=== PATIENT | female | born 1980 | race Caucasian/White ===

== ENCOUNTER 2017-09-12 21:10 | Emergency (ER) | payer MEDICARE, MEDICAID ==
[~2017-09-12] VITALS: Ht 165.1 cm; Wt 92.1 kg
[~2017-09-12 21:10] MED LIST: ACETAMINOPHEN-1 EAC1 PO; AMITRIPTYLINE H25 M3 PO; BACLOFEN; BACTRIM DS TAB1 EACH PO; BUTALB-APAP-CA1 EACH PO; CARISOPRODOL 3350 MG; CIPRO250 M1 PO; CLEOCIN HCL300 MG PO; CLIMARA; COZAAR 50 MG TA50 M2; CUBICIN500 MG IVPB; CYMBALTA30 MG; ESTRACE1 MG PO; FLAGYL500 MG PO; HYDROCHLOROTH12.5 M1; HYDROCODONE-AP1 EAC6 PO; IBUPROFEN 800800 M1 PO; LEVAQUIN 500 M500 M2 PO; LISINOPRIL10 MG PO; MELOXICAM7.5 MG; MOBIC7.5 M1 PO; NAPROSYN500 MG PO; NEURONTIN300 MG PO; NORCO 10-325 T1 EACH PO; NORCO 5-325 TA1 EACH PO; PHENERGAN 25 MG25 M1 PO; PREDNISONE 20 M20 M1 PO; PREDNISONE 20 M20 MG PO; PROTONIX40 M1 PO; PROZAC20 MG PO; TORADOL 10 MG T10 MG PO; TRAMADOL 50 MG50 MG PO; TRAZODONE 150150 M1 PO; VALACYCLOVIR500 MG PO; VALTREX 500 MG500 M1 PER TUBE; VENTOLIN HFA 1818 GM INH; VICODIN; ZOFRAN4 MG PO; ZPAK PO
[2017-09-12 21:45] LABS: ABSOLUTE BASOPHILS 0.1 thou/uL (0.0-0.2); ABSOLUTE EOSINOPHILS 0.4 thou/uL (0.0-0.7); ABSOLUTE MONOCYTES 0.6 thou/uL (0.0-1.2); ABSOLUTE NEUTROPHILS 4.9 thou/uL (1.6-8.1); BASOPHILS 0.8 %; HEMATOCRIT 39.8 % (37.0-47.0); HEMOGLOBIN 13.8 gm/dL (12.0-15.0); LYMPHOCYTES 34.1 %; MCH 29.5 pg (26.0-34.0); MCHC 34.6 g/dL (28.0-37.0); MCV 85.3 fL (80.0-100.0); MONOCYTES 6.3 %; MPV 7.9 fl. (7.2-11.1); NUCLEATED RBCS 0 /100WBC; PLATELET COUNT* 405 thou/uL (150-400); POLYS 54.8 %; RBC 4.66 mil/uL (4.20-5.00); RDW-CV 14.2 % (10.5-14.5); WBC 8.9 thou/uL (4.0-11.0)
[2017-09-12 21:53] LABS: ANION GAP 8 mmol/L (7-16); BUN 8 mg/dL (7-18); CALCIUM 8.4 mg/dL (8.5-10.1); CHLORIDE 98 mmol/L (98-107); CO2 30 mmol/L (21-32); CREATININE 0.9 mg/dL (0.6-1.3); GLUCOSE 97 mg/dL (70-99); POTASSIUM 3.3 mmol/L (3.5-5.1); SODIUM 136 mmol/L (136-145)
[2017-09-12 22:00] LABS: ALBUMIN 3.4 g/dL (3.4-5.0); ALKALINE PHOSPHATASE 130 U/L (46-116); LIPASE 144 U/L (73-393); SGOT 25 U/L (15-37); SGPT 34 U/L (30-65); TOTAL BILIRUBIN 0.2 mg/dL (<0.1-1.0); TOTAL PROTEIN 7.4 g/dL (6.4-8.2); TROPONIN-I LEVEL <0.06 ng/mL (<0.06)
[2017-09-12 22:45] LABS: URINE BILIRUBIN NEGATIVE (Negative); URINE BLOOD NEGATIVE (Negative); URINE CLARITY CLEAR; URINE COLOR YELLOW; URINE GLUCOSE-RANDOM NEGATIVE (Negative); URINE KETONES NEGATIVE (Negative); URINE LEUKOCYTES NEGATIVE (Negative); URINE NITRITE NEGATIVE (Negative); URINE PROTEIN NEGATIVE (Negative); URINE UROBILINOGEN 0.2 E.U./dl (0.2-1.0)
[2017-09-12] MEDS ORDERED: CARAFATE 1 GM TA1 G1 PO (23:19)
[2017-09-12] MEDS ORDERED: OMEPRAZOLE40 MG PO (23:19)
[2017-09-12 23:37] VITALS: BP 118/51
--- NOTE | 2017-09-13 14:39 | EKG ---
[place] [address] ELECTROCARDIOGRAM REPORT Name: LUCINA HEWITT [id number] Admission: 09/12/17 Attend Phys: Discharge: 09/12/17 Date of : [birth year] Report #: [id number] THIS REPORT FOR: //name// [facility] ED Test Date: 2017-09-12 Test Time: 21:45:04 Pat Name: LUCINA HEWITT Department: Room: Gender: F Accreditation Specialist: CANDICE : 1980 Requested By: Yodit Butt Order Number: [id number] MD: Zac Payne Measurements Intervals [place] Rate: 78 P: 51 [place]: 179 QRS: 61 QRSD: 107 T: 31 QT: 407 QTc: 464 Interpretive Statements Sinus rhythm Abnormal inferior Q waves Minimal ST depression, inferior leads Baseline wander in lead(s) II,III,aVF,V1,V2,V4,V5,V6 Compared to ECG 01/25/2017 20:55:06 no change Electronically Signed On 09-13-2017 14:39:43 FABRIC WORKER SUPERVISOR by Zac Payne [email or web address] <ELECTRONICALLY SIGNED> By: Zac Payne MD, FACC 09/13/17 1439 [id number] [id number] Zac Payne MD, [facility] /EPI
== END 2017-09-12 23:38 | disposition home or self-care (01) ==
LOC: M.ERS 21:10
PROVIDERS: Physician Assistant
DX: R10.12 Left upper quadrant pain (principal); E87.6 Hypokalemia; G43.909 Migraine, unspecified, not intractable, without status migrainosus; F17.210 Nicotine dependence, cigarettes, uncomplicated; F41.9 Anxiety disorder, unspecified; Z98.890 Other specified postprocedural states; Z90.710 Acquired absence of both cervix and uterus; Z88.1 Allergy status to other antibiotic agents; Z88.0 Allergy status to penicillin; Z88.8 Allergy status to other drugs, medicaments and biological substances

== ENCOUNTER 2017-12-02 00:30 | Emergency (ER) | payer MEDICARE, MEDICAID ==
[~2017-12-02] VITALS: Ht 165.1 cm; Wt 93.0 kg
[~2017-12-02 00:30] MED LIST changes: +CARAFATE 1 GM TA1 G1 PO; +OMEPRAZOLE40 MG PO
[2017-12-02] MEDS ORDERED: AMITRIPTYLINE H50 M2 PO (00:41)
[2017-12-02] MEDS ORDERED: RITALIN20 MG PO (00:42)
[2017-12-02 01:13] LABS: URINE BILIRUBIN NEGATIVE (Negative); URINE BLOOD NEGATIVE (Negative); URINE CLARITY CLEAR; URINE COLOR YELLOW; URINE GLUCOSE-RANDOM NEGATIVE (Negative); URINE KETONES NEGATIVE (Negative); URINE LEUKOCYTES-REFLEX NEGATIVE (Negative); URINE NITRITE-REFLEX NEGATIVE (Negative); URINE PROTEIN NEGATIVE (Negative); URINE SPECIFIC GRAVITY <= 1.005 (1.005-1.030); URINE UROBILINOGEN 0.2 E.U./dl (0.2-1.0)
[2017-12-02 01:20] LABS: AMP/METHAMP Negative (Negative); BARBITURATES Negative (Negative); BENZODIAZEPINES Negative (Negative); COCAINE Negative (Negative); METHADONE Negative (Negative); OPIATES POSITIVE (Negative); PCP Negative (Negative); THC POSITIVE (Negative)
[2017-12-02 01:26] LABS: ABSOLUTE BASOPHILS 0.1 thou/uL (0.0-0.2); ABSOLUTE EOSINOPHILS 0.5 thou/uL (0.0-0.7); ABSOLUTE LYMPHOCYTES 2.4 thou/uL (0.8-5.3); ABSOLUTE MONOCYTES 0.4 thou/uL (0.0-1.2); ABSOLUTE NEUTROPHILS 5.4 thou/uL (1.6-8.1); BASOPHILS 0.6 %; EOSINOPHILS 5.2 %; LYMPHOCYTES 27.6 %; MCH 28.8 pg (26.0-34.0); MCHC 33.3 g/dL (28.0-37.0); MCV 86.3 fL (80.0-100.0); MONOCYTES 4.4 %; MPV 8.1 fl. (7.2-11.1); NUCLEATED RBCS 0 /100WBC; PLATELET COUNT* 402 thou/uL (150-400); POLYS 62.2 %; RBC 5.22 mil/uL (4.20-5.00); RDW-CV 13.9 % (10.5-14.5); WBC 8.7 thou/uL (4.0-11.0)
[2017-12-02 01:30] LABS: ANION GAP 10 mmol/L (7-16); BUN 8 mg/dL (7-18); CALCIUM 9.1 mg/dL (8.5-10.1); CHLORIDE 103 mmol/L (98-107); CO2 28 mmol/L (21-32); CREATININE 0.8 mg/dL (0.6-1.3); GLUCOSE 87 mg/dL (70-99); POTASSIUM 3.6 mmol/L (3.5-5.1); SODIUM 141 mmol/L (136-145)
[2017-12-02 01:32] LABS: PROTIME 9.7 Seconds (9.20-11.50)
[2017-12-02 01:41] LABS: ALBUMIN 3.7 g/dL (3.4-5.0); ALKALINE PHOSPHATASE 131 U/L (46-116); LIPASE 112 U/L (73-393); NT-PRO BRAIN NAT PEPTIDE 84 pg/mL (<300); SGOT 29 U/L (15-37); SGPT 42 U/L (30-65); TOTAL BILIRUBIN 0.3 mg/dL (<0.1-1.0); TOTAL PROTEIN 8.2 g/dL (6.4-8.2); TROPONIN-I LEVEL <0.06 ng/mL (<0.06)
[2017-12-02 03:49] VITALS: BP 134/90
--- NOTE | 2017-12-02 16:57 | EKG ---
[place] [address] ELECTROCARDIOGRAM REPORT Name: LUCINA HEWITT [facility] [id number] Admission: 12/02/17 Attend Phys: Discharge: 12/02/17 Date of : [birth year] Report #: [id number] THIS REPORT FOR: //name// [facility] ED Test Date: 2017-12-02 Test Time: 00:33:38 Pat Name: LUCINA HEWITT Department: Room: Gender: F Subway Repair Supervisor: RUMA Yip : 1980 Requested By: Paty Braun Order Number: [id number] MD: Suresh Garcia Measurements Intervals [place] Rate: 86 P: 66 [place]: 182 QRS: 68 QRSD: 103 T: 26 QT: 391 QTc: 468 Interpretive Statements Sinus rhythm Compared to ECG 09/12/2017 21:45:04 Inferior Q waves no longer present Q waves no longer present ST (T wave) deviation no longer present Electronically Signed On 12-02-2017 16:56:53 CDT by Suresh Garcia [email or web address] <ELECTRONICALLY SIGNED> By: Suresh Garcia MD, [facility] 12/02/17 1656 0033 Suresh Garcia MD, [facility] /EPI
== END 2017-12-02 03:52 | disposition home or self-care (01) ==
LOC: M.ERS 00:30
PROVIDERS: Emergency Medicine
DX: R10.13 Epigastric pain (principal); M79.7 Fibromyalgia; F17.210 Nicotine dependence, cigarettes, uncomplicated; Z88.0 Allergy status to penicillin; Z88.1 Allergy status to other antibiotic agents; Z88.5 Allergy status to narcotic agent; Z90.49 Acquired absence of other specified parts of digestive tract; Z90.710 Acquired absence of both cervix and uterus

== ENCOUNTER 2018-04-09 19:17 | Emergency (ER) | payer MEDICARE, MEDICAID ==
[~2018-04-09] VITALS: Ht 165.1 cm; Wt 93.0 kg
[~2018-04-09 19:17] MED LIST changes: +AMITRIPTYLINE H50 M2 PO; +RITALIN20 MG PO
[2018-04-09] MEDS ORDERED: NABUMETONE 750750 M1 PO (20:45)
[2018-04-09] MEDS ORDERED: NORCO 5-325 TA1 EACH PO (20:45)
[2018-04-09 21:00] VITALS: BP 117/81
== END 2018-04-09 21:01 | disposition home or self-care (01) ==
LOC: M.ERS 19:17
DX: T23.232A Burn of second degree of multiple left fingers (nail), not including thumb, initial encounter (principal); T23.101A Burn of first degree of right hand, unspecified site, initial encounter; F17.210 Nicotine dependence, cigarettes, uncomplicated; Z88.0 Allergy status to penicillin; Z88.1 Allergy status to other antibiotic agents; Z88.8 Allergy status to other drugs, medicaments and biological substances; X08.8XXA Exposure to other specified smoke, fire and flames, initial encounter; Y93.89 Activity, other specified; Y92.89 Other specified places as the place of occurrence of the external cause; Y99.8 Other external cause status

== ENCOUNTER → 2018-12-03 | Outpatient (CLI) | payer MEDICARE, MEDICAID ==
[~2018-12-03] MED LIST changes: +NABUMETONE 750750 M1 PO
--- NOTE | 2018-12-03 14:33 | 2DMMODE ---
[place] [address] 2 D/M-MODE ECHOCARDIOGRAM Name: LUCINA HEWITT [id number] Admission: 12/03/18 Attend Phys: Zac Payne MD Discharge: Date of : 80 Date of Service: 12/03/18 1432 Report #: [id number] THIS REPORT FOR: //name// APPROVED REPORT Study performed: 12/03/2018 12:51:18 EXAM: Comprehensive 2D, Doppler, and color-flow Echocardiogram Patient Location: Out-Patient BSA: 2.02 HR: 80 bpm BP: 120/80 mmHg Other Information Study Quality: Good Indications Dyspnea 2D Dimensions IVSd: 8.77 (7-11mm) LVOT Diam: 20.19 (18-24mm) LVDd: 40.90 mm PWd: 8.77 (7-11mm) Ascending Ao: 24.22 (22-36mm) LVDs: 25.88 (25-40mm) Aortic Root: 27.43 mm Volumes Left Atrial Volume (Systole) LA ESV Index: 13.10 mL/m2 Aortic Valve AoV Peak Eddi.: 0.96 m/s AO Peak Gr.: 3.68 mmHg LVOT Max P.66 mmHg AO Mean Gr.: 2.09 mmHg LVOT Mean P.68 mmHg LVOT Max V: 0.96 m/s AO V2 VTI: 20.81 cm LVOT Mean V: 0.60 m/s ANGELINA (VTI): 2.94 cm2 LVOT V1 VTI: 19.13 cm Mitral Valve E/A Ratio: 1.01 MV Decel. Time: 225.84 ms MV E Max Eddi.: 0.68 m/s MV PHT: 65.49 ms MVA (PHT): 3.36 cm2 [place] [address] 2 D/M-MODE ECHOCARDIOGRAM Name: MARCELINALUCINA [facility] [id number] Admission: 12/03/18 Attend Phys: Zac Payne MD Discharge: Date of : 80 Date of Service: 12/03/18 1432 Report #: [id number] TDI E/Lateral E': 5.67 E/Medial E': 6.18 Medial E' Eddi.: 0.11 m/s Lateral E' Eddi.: 0.12 m/s Pulmonary Valve PV Peak Eddi.: 0.80 m/s PV Peak Gr.: 2.56 mmHg Left Ventricle The left ventricle is normal size. There is normal LV segmental wall motion. There is normal left ventricular wall thickness. Left ventricular systolic function is normal. LVEF is 55-60%. The left ventricular diastolic function is normal. Right Ventricle The right ventricle is normal size. The right ventricular systolic function is normal. Atria The left atrium size is normal. The right atrium size is normal. Aortic Valve The aortic valve is normal in structure. No aortic regurgitation is present. There is no aortic valvular stenosis. Mitral Valve The mitral valve is normal in structure. There is no mitral valve regurgitation noted. No evidence of mitral valve stenosis. Tricuspid Valve The tricuspid valve is normal in structure. There is no tricuspid valve regurgitation noted. Pulmonic Valve The pulmonary valve is normal in structure. There is no pulmonic valvular regurgitation. Great Vessels The aortic root is normal in size. IVC is normal in size and collapses >50% with inspiration. Pericardium There is no pericard[place] [address] 2 D/M-MODE ECHOCARDIOGRAM Name: LUCINA HEWITT [id number] Admission: 12/03/18 Attend Phys: Zac Payne MD Discharge: Date of : 80 Date of Service: 12/03/18 1432 Report #: [id number] <Conclusion> The left ventricle is normal size. There is normal left ventricular wall thickness. Left ventricular systolic function is normal. LVEF is 55-60%. The left ventricular diastolic function is normal. IVC is normal in size and collapses >50% with inspiration. <ELECTRONICALLY SIGNED> By: Suresh Garcia MD, FACC 12/03/18 143 143 143 Suresh Garcia MD, FAC /INF
== END ==
LOC: M.CRD 11-12 14:00
DX: R06.02 Shortness of breath (principal); Z88.1 Allergy status to other antibiotic agents; Z88.0 Allergy status to penicillin

== ENCOUNTER 2018-12-09 22:22 | Emergency (ER) | payer MEDICARE, MEDICAID ==
[~2018-12-09] VITALS: Ht 165.1 cm; Wt 93.0 kg
[2018-12-09] MEDS ORDERED: ZPAK PO (22:31)
[2018-12-09] MEDS ORDERED: TRAMADOL 50 MG50 MG PO (22:31)
[2018-12-09] MEDS ORDERED: KEFLEX500 M1 PO (22:42)
[2018-12-09] MEDS ORDERED: NORCO 7.5-3251 EACH PO (22:42)
[2018-12-09 23:00] VITALS: BP 150/104
== END 2018-12-09 23:00 | disposition home or self-care (01) ==
LOC: M.ERS 22:22
DX: K02.9 Dental caries, unspecified (principal); H92.03 Otalgia, bilateral; M79.7 Fibromyalgia; Z90.49 Acquired absence of other specified parts of digestive tract; Z90.710 Acquired absence of both cervix and uterus; Z98.890 Other specified postprocedural states; F17.210 Nicotine dependence, cigarettes, uncomplicated; Z88.0 Allergy status to penicillin; Z88.1 Allergy status to other antibiotic agents; Z88.8 Allergy status to other drugs, medicaments and biological substances

== ENCOUNTER 2019-06-07 04:05 | Emergency (ER) | payer MEDICARE, MEDICAID ==
[~2019-06-07] VITALS: Ht 165.1 cm; Wt 96.2 kg
[~2019-06-07 04:05] MED LIST changes: +KEFLEX500 M1 PO; +NORCO 7.5-3251 EACH PO
[2019-06-07 04:35] LABS: ABSOLUTE BASOPHILS 0.1 thou/uL (0.0-0.2); ABSOLUTE EOSINOPHILS 0.3 thou/uL (0.0-0.7); ABSOLUTE LYMPHOCYTES 4.3 thou/uL (0.8-5.3); ABSOLUTE MONOCYTES 0.6 thou/uL (0.0-1.2); EOSINOPHILS 3.3 %; HEMATOCRIT 43.8 % (37.0-47.0); HEMOGLOBIN 14.8 gm/dL (12.0-15.0); LYMPHOCYTES 41.6 %; MCH 28.8 pg (26.0-34.0); MCHC 33.7 g/dL (28.0-37.0); MCV 85.4 fL (80.0-100.0); MONOCYTES 5.5 %; MPV 7.5 fl. (7.2-11.1); NUCLEATED RBCS 0 /100WBC; PLATELET COUNT* 488 thou/uL (150-400); POLYS 48.6 %; RBC 5.13 mil/uL (4.20-5.00); WBC 10.3 thou/uL (4.0-11.0)
[2019-06-07 04:43] LABS: CALCIUM 8.8 mg/dL (8.5-10.1); CREATININE 0.8 mg/dL (0.6-1.3); POTASSIUM 3.2 mmol/L (3.5-5.1)
[2019-06-07 04:47] LABS: ALBUMIN 3.5 g/dL (3.4-5.0); TOTAL BILIRUBIN 0.3 mg/dL (<0.1-1.0); TOTAL PROTEIN 7.9 g/dL (6.4-8.2)
[2019-06-07 05:12] LABS: URINE BILIRUBIN NEGATIVE (Negative); URINE BLOOD NEGATIVE (Negative); URINE CLARITY CLEAR; URINE COLOR YELLOW; URINE GLUCOSE-RANDOM NEGATIVE (Negative); URINE KETONES NEGATIVE (Negative); URINE LEUKOCYTES-REFLEX NEGATIVE (Negative); URINE NITRITE-REFLEX NEGATIVE (Negative); URINE PROTEIN NEGATIVE (Negative); URINE SPECIFIC GRAVITY 1.025 (1.005-1.030); URINE UROBILINOGEN 0.2 E.U./dl (0.2-1.0)
[2019-06-07 05:19] LABS: AMP/METHAMP Negative (Negative); BARBITURATES Negative (Negative); BENZODIAZEPINES Negative (Negative); COCAINE Negative (Negative); METHADONE Negative (Negative); OPIATES POSITIVE (Negative); PCP Negative (Negative); THC POSITIVE (Negative)
[2019-06-07 06:51] VITALS: BP 113/60
--- NOTE | 2019-06-09 16:20 | EKG ---
[place] [address] ELECTROCARDIOGRAM REPORT Name: LUCINA HEWITT [facility] [id number] Admission: 06/07/19 Attend Phys: Discharge: 06/07/19 Date of : [birth year] Report #: [id number] THIS REPORT FOR: //name// [facility] ED Test Date: 2019-06-07 Test Time: 04:13:32 Pat Name: LUCINA HEWITT Department: Room: Gender: F Junk Removal Specialist: RADHA : 1980 Requested By: Ainsley Vázquez Order Number: [id number] MD: Zac Payne Measurements Intervals [place] Rate: 123 P: 70 [place]: 150 QRS: 68 QRSD: 97 T: -32 QT: 328 QTc: 470 Interpretive Statements Sinus tachycardia Inferior infarct, age indeterminate Compared to ECG 12/02/2017 00:33:38 Sinus rhythm no longer present Electronically Signed On 06-09-2019 16:20:41 CDT by Zac Payne [email or web address] <ELECTRONICALLY SIGNED> By: Zac Payne MD, [facility] 06/09/19 1620 041 041 Zac Payne MD, FACC /EPI
== END 2019-06-07 06:51 | disposition home or self-care (01) ==
LOC: M.ERS 04:05
PROVIDERS: Personal Emergency Response Attendant
DX: F41.9 Anxiety disorder, unspecified (principal); R00.0 Tachycardia, unspecified; M79.7 Fibromyalgia; F17.210 Nicotine dependence, cigarettes, uncomplicated; Z90.49 Acquired absence of other specified parts of digestive tract; Z98.890 Other specified postprocedural states; Z90.710 Acquired absence of both cervix and uterus; Z88.1 Allergy status to other antibiotic agents; Z88.0 Allergy status to penicillin; Z88.8 Allergy status to other drugs, medicaments and biological substances; Z79.899 Other long term (current) drug therapy

== ENCOUNTER → 2020-06-25 | Outpatient (CLI) | payer MEDICARE, MEDICAID | LOC: M.CT 06-22 16:00 | PROVIDERS: ATTEND Internal Medicine | DX: J01.00 Acute maxillary sinusitis, unspecified (principal); J34.1 Cyst and mucocele of nose and nasal sinus ==

== ENCOUNTER 2020-11-30 23:21 | Emergency (ER) | payer MEDICARE, MEDICAID ==
[~2020-11-30] VITALS: Ht 165.1 cm; Wt 96.2 kg
[2020-11-30] MEDS ORDERED: OXYCODONE PO (23:42)
[2020-11-30] MEDS ORDERED: AVALIDE 150-121 EACH PO (23:44)
[2020-11-30 23:51] LABS: URINE BILIRUBIN NEGATIVE (Negative); URINE BLOOD NEGATIVE (Negative); URINE CLARITY CLEAR; URINE COLOR YELLOW; URINE GLUCOSE-RANDOM NEGATIVE (Negative); URINE KETONES NEGATIVE (Negative); URINE LEUKOCYTES-REFLEX NEGATIVE (Negative); URINE NITRITE-REFLEX NEGATIVE (Negative); URINE PROTEIN NEGATIVE (Negative); URINE UROBILINOGEN 0.2 E.U./dl (0.2-1.0)
[2020-12-01 00:17] LABS: ABSOLUTE BASOPHILS 0.1 thou/uL (0.0-0.2); ABSOLUTE EOSINOPHILS 0.4 thou/uL (0.0-0.7); ABSOLUTE LYMPHOCYTES 3.2 thou/uL (0.8-5.3); ABSOLUTE MONOCYTES 0.7 thou/uL (0.0-1.2); ABSOLUTE NEUTROPHILS 7.5 thou/uL (1.6-8.1); BASOPHILS 0.6 %; EOSINOPHILS 3.2 %; LYMPHOCYTES 27.3 %; MCH 28.7 pg (26.0-34.0); MCHC 33.4 g/dL (28.0-37.0); MCV 85.7 fL (80.0-100.0); MONOCYTES 5.7 %; MPV 7.8 fl. (7.2-11.1); NUCLEATED RBCS 0 /100WBC; PLATELET COUNT* 372 thou/uL (150-400); POLYS 63.2 %; RBC 4.89 mil/uL (4.20-5.00); RDW-CV 14.6 % (10.5-14.5); WBC 11.8 thou/uL (4.0-11.0)
[2020-12-01 00:57] LABS: CALCIUM 8.7 mg/dL (8.5-10.1); CREATININE 0.8 mg/dL (0.6-1.3); POTASSIUM 3.5 mmol/L (3.5-5.1); TOTAL BILIRUBIN 0.3 mg/dL (<0.1-1.0); TOTAL PROTEIN 7.1 g/dL (6.4-8.2)
[2020-12-01 01:29] LABS: ESR (SEDRATE) 30 mm/hr (0-20)
[2020-12-01] MEDS ORDERED: ZOFRAN ODT4 MG PO (02:24)
[2020-12-01 02:46] VITALS: BP 125/76
== END 2020-12-01 02:46 | disposition home or self-care (01) ==
LOC: M.ERS 23:21
PROVIDERS: Emergency Medicine
DX: I10 Essential (primary) hypertension (principal); M79.7 Fibromyalgia; F17.210 Nicotine dependence, cigarettes, uncomplicated; Z88.0 Allergy status to penicillin; Z88.1 Allergy status to other antibiotic agents; Z88.8 Allergy status to other drugs, medicaments and biological substances; Z90.49 Acquired absence of other specified parts of digestive tract; Z98.890 Other specified postprocedural states; Z90.710 Acquired absence of both cervix and uterus

== ENCOUNTER 2020-12-21 20:13 | Emergency (ER) | payer MEDICARE, MEDICAID ==
[~2020-12-21] VITALS: Ht 165.1 cm; Wt 96.2 kg
[~2020-12-21 20:13] MED LIST changes: +AVALIDE 150-121 EACH PO; +OXYCODONE PO; +ZOFRAN ODT4 MG PO
[2020-12-21] MEDS ORDERED: ACETAZOLAMIDE250 M1 PO (20:32)
[2020-12-21 20:53] LABS: ABSOLUTE BASOPHILS 0.1 thou/uL (0.0-0.2); ABSOLUTE EOSINOPHILS 0.4 thou/uL (0.0-0.7); ABSOLUTE LYMPHOCYTES 3.5 thou/uL (0.8-5.3); ABSOLUTE MONOCYTES 0.6 thou/uL (0.0-1.2); ABSOLUTE NEUTROPHILS 6.7 thou/uL (1.6-8.1); BASOPHILS 0.8 %; EOSINOPHILS 3.4 %; HEMATOCRIT 42.5 % (37.0-47.0); HEMOGLOBIN 14.3 gm/dL (12.0-15.0); MCHC 33.7 g/dL (28.0-37.0); MCV 86.1 fL (80.0-100.0); MONOCYTES 5.6 %; MPV 7.4 fl. (7.2-11.1); NUCLEATED RBCS 0 /100WBC; PLATELET COUNT* 478 thou/uL (150-400); POLYS 59.2 %; RBC 4.94 mil/uL (4.20-5.00); RDW-CV 14.4 % (10.5-14.5); WBC 11.3 thou/uL (4.0-11.0)
[2020-12-21 21:05] LABS: APTT 25.4 Seconds (25.0-31.3); PROTIME 10.3 Seconds (9.20-11.50)
[2020-12-21 21:12] LABS: CALCIUM 9.5 mg/dL (8.5-10.1); CREATININE 0.8 mg/dL (0.6-1.3); POTASSIUM 3.7 mmol/L (3.5-5.1)
[2020-12-21 21:17] LABS: ALBUMIN 3.5 g/dL (3.4-5.0); TOTAL BILIRUBIN 0.6 mg/dL (<0.1-1.0); TOTAL PROTEIN 7.8 g/dL (6.4-8.2)
[2020-12-21] MEDS ORDERED: PHENERGAN 25 MG25 M1 PO (22:34)
[2020-12-21] MEDS ORDERED: ZOFRAN ODT4 MG PO (22:46)
[2020-12-21] MEDS ORDERED: HYDROCODON-ACE1 EAC7 PO (22:46)
[2020-12-21 23:07] VITALS: BP 122/72
--- NOTE | 2020-12-22 14:25 | EKG ---
[place] [address] ELECTROCARDIOGRAM REPORT Name: LUCINA HEWITT Room: [facility]#: [id number] Admission: 12/21/20 Attend Phys: Discharge: 12/21/20 Date of : [birth year] Date of Service: 12/21/202036 Report #: [id number] THIS REPORT FOR: //name// [facility] ED Test Date: 2020-12-21 Test Time: 20:37:32 Pat Name: LUCINA HEWITT Department: Room: Gender: F Cds Sales Advisor: STEVIE : 1980 Requested By: Ainsley Vázquez Order Number: [id number] Naldo MD: Maciel White Measurements Intervals [place] Rate: 76 P: 54 [place]: 186 QRS: 57 QRSD: 107 T: 44 QT: 411 QTc: 463 Interpretive Statements Sinus rhythm Nondiagnostic inferior Q waves Baseline wander in lead(s) II,III,aVF,V1,V2,V3,V4,V5,V6 Compared to ECG 06/07/2019 04:13:32 Sinus tachycardia no longer present Electronically Signed On 12-22-2020 14:25:06 CDT by Maciel White [email or web address] <ELECTRONICALLY SIGNED> By: Maciel White MD, [facility] 12/22/20 1425 36 36 Maciel White MD, [facility] /EPI
== END 2020-12-21 23:07 | disposition home or self-care (01) ==
LOC: M.ERS 20:13
PROVIDERS: Personal Emergency Response Attendant
DX: G93.2 Benign intracranial hypertension (principal); R51.9 Headache, unspecified; R11.2 Nausea with vomiting, unspecified; R55 Syncope and collapse; F17.210 Nicotine dependence, cigarettes, uncomplicated; M79.7 Fibromyalgia; Z88.1 Allergy status to other antibiotic agents; Z88.0 Allergy status to penicillin; Z79.899 Other long term (current) drug therapy; Z98.890 Other specified postprocedural states; Z90.49 Acquired absence of other specified parts of digestive tract

== ENCOUNTER → 2021-06-10 | Outpatient (CLI) | payer MEDICARE, MEDICAID ==
[~2021-06-10] MED LIST changes: +ACETAZOLAMIDE250 M1 PO; +HYDROCODON-ACE1 EAC7 PO
== END ==
LOC: M.CT 14:41
PROVIDERS: ATTEND Internal Medicine
DX: R59.9 Enlarged lymph nodes, unspecified (principal)

== ENCOUNTER → 2021-09-06 | Outpatient (CLI) | payer MEDICARE, MEDICAID ==
--- NOTE | 2021-09-06 12:57 | EKG ---
[place] [address] ELECTROCARDIOGRAM REPORT Name: LUCINA HEWITT Room: [facility]#: [id number] Admission: 09/06/21 Attend Phys: Nicole Gómez, Discharge: Date of : 80 Date of Service: 09/06/21 1131 Report #: [id number] THIS REPORT FOR: //name// [facility] Test Date: 2021-09-06 Test Time: 11:31:33 Pat Name: LUCINA HEWITT Department: Room: Gender: Computer Systems Software Engineer: : 1980 Requested By: Suresh Garcia Order Number: [id number] Naldo MD: Maciel White Measurements Intervals [place] Rate: 89 P: 68 [place]: 173 QRS: 70 QRSD: 92 T: 49 QT: 373 QTc: 454 Interpretive Statements Sinus rhythm Compared to ECG 12/21/2020 20:37:32 Inferior Q waves no longer present Electronically Signed On 09-06-2021 12:57:44 ASSISTANT DIRECTOR OF ADMISSIONS by Maciel White [email or web address] <ELECTRONICALLY SIGNED> By: Maciel White MD, [facility] 09/06/21 1257 113 113 Maciel White MD, FACC /EPI
== END ==
LOC: M.CRD 08-17 13:00
PROVIDERS: ATTEND Nurse Practitioner
DX: I10 Essential (primary) hypertension (principal); R06.02 Shortness of breath

== ENCOUNTER 2021-09-17 19:58 | Emergency (ER) | payer MEDICARE, MEDICAID ==
[~2021-09-17] VITALS: Ht 165.1 cm; Wt 90.7 kg
[2021-09-17 22:17] LABS: ABSOLUTE BASOPHILS 0.1 thou/uL (0.0-0.2); ABSOLUTE EOSINOPHILS 0.3 thou/uL (0.0-0.7); ABSOLUTE LYMPHOCYTES 2.2 thou/uL (0.8-5.3); ABSOLUTE MONOCYTES 0.6 thou/uL (0.0-1.2); ABSOLUTE NEUTROPHILS 8.6 thou/uL (1.6-8.1); BASOPHILS 0.8 %; EOSINOPHILS 2.4 %; HEMATOCRIT 41.4 % (37.0-47.0); LYMPHOCYTES 18.9 %; MCH 28.6 pg (26.0-34.0); MCHC 33.8 g/dL (28.0-37.0); MCV 84.5 fL (80.0-100.0); MPV 7.3 fl. (7.2-11.1); NUCLEATED RBCS 0 /100WBC; PLATELET COUNT* 393 thou/uL (150-400); POLYS 72.9 %; RDW-CV 14.4 % (10.5-14.5); WBC 11.7 thou/uL (4.0-11.0)
[2021-09-17 22:22] LABS: CALCIUM 8.8 mg/dL (8.5-10.1); CREATININE 0.8 mg/dL (0.6-1.3); POTASSIUM 3.8 mmol/L (3.5-5.1)
[2021-09-17 22:26] LABS: ALBUMIN 3.6 g/dL (3.4-5.0); TOTAL BILIRUBIN 0.2 mg/dL (<0.1-1.0); TOTAL PROTEIN 8.1 g/dL (6.4-8.2)
[2021-09-17 22:56] LABS: URINE BILIRUBIN NEGATIVE (Negative); URINE BLOOD NEGATIVE (Negative); URINE CLARITY CLEAR; URINE COLOR YELLOW; URINE GLUCOSE-RANDOM NEGATIVE (Negative); URINE KETONES NEGATIVE (Negative); URINE LEUKOCYTES-REFLEX NEGATIVE (Negative); URINE NITRITE-REFLEX NEGATIVE (Negative); URINE PROTEIN NEGATIVE (Negative); URINE UROBILINOGEN 0.2 E.U./dl (0.2-1.0)
[2021-09-17 23:05] LABS: AMP/METHAMP Negative (Negative); BARBITURATES Negative (Negative); BENZODIAZEPINES Negative (Negative); COCAINE Negative (Negative); METHADONE Negative (Negative); OPIATES POSITIVE (Negative); PCP Negative (Negative); THC POSITIVE (Negative)
[2021-09-17 23:32] VITALS: BP 125/74
--- NOTE | 2021-09-18 08:16 | EKG ---
[place] [address] ELECTROCARDIOGRAM REPORT Name: LUCINA HEWITT Room: [facility]#: [id number] Admission: 09/17/21 Attend Phys: Discharge: 09/17/21 Date of : [birth year] Date of Service: 09/17/21 [facility] Report #: [id number] THIS REPORT FOR: //name// [facility] ED Test Date: 2021-09-17 Test Time: 20:04:22 Pat Name: LUCINA HEWITT Department: Room: Gender: Irrigator Overhead: [place] : 1980 Requested By: Ainsley Vázquez Order Number: [id number] MD: Suresh Garcia Measurements Intervals [place] Rate: 113 P: 69 [place]: 167 QRS: 70 QRSD: 101 T: 24 QT: 343 QTc: 471 Interpretive Statements Sinus tachycardia Compared to ECG 09/06/2021 11:31:33 Sinus rhythm no longer present Electronically Signed On 09-18-2021 8:16:04 AMMUNITION SUPERVISOR by Suresh Garcia [email or web address] <ELECTRONICALLY SIGNED> By: Suresh Garcia MD, [facility] 09/18/21 08 03 03 Suresh Garcia MD, [facility] /EPI
== END 2021-09-17 23:32 | disposition home or self-care (01) ==
LOC: M.ERS 19:58
PROVIDERS: Personal Emergency Response Attendant
DX: R00.2 Palpitations (principal); F11.90 Opioid use, unspecified, uncomplicated; R51.9 Headache, unspecified; R11.0 Nausea; M79.7 Fibromyalgia; F17.210 Nicotine dependence, cigarettes, uncomplicated; Z90.49 Acquired absence of other specified parts of digestive tract; Z98.890 Other specified postprocedural states; Z90.710 Acquired absence of both cervix and uterus; Z79.899 Other long term (current) drug therapy; Z88.1 Allergy status to other antibiotic agents; Z88.0 Allergy status to penicillin; Z88.8 Allergy status to other drugs, medicaments and biological substances